=== PATIENT | female | born 1970 | race Caucasian/White ===

== ENCOUNTER 2024-09-20 15:15 | Outpatient (RCR) | payer OTHER, SELFPAY | END 2025-01-18 23:59 | disposition home or self-care (01) | PROVIDERS: PCP Student in an Organized Health Care Education/Training Program; Visit Provider Student in an Organized Health Care Education/Training Program | DX: M25.50 Pain in unspecified joint (principal); M19.09 Primary osteoarthritis, other specified site; M25.649 Stiffness of unspecified hand, not elsewhere classified; R53.83 Other fatigue; Z51.89 Encounter for other specified aftercare | CPT/HCPCS: 97165; 97535 ==